=== PATIENT | female | born 1970 | race Caucasian/White ===

== ENCOUNTER 2020-09-13 13:14 | Outpatient (REF) | payer OTHER, SELFPAY ==
--- NOTE | 2020-09-13 13:18 | XR_ITS ---
EXAMINATION: XR FOOT, RIGHT CLINICAL INFORMATION: Follow-up fracture COMPARISON: Previous x-ray 07/28/2020 TECHNIQUE: 3 views right foot of the right foot. FINDINGS: There is a healing nondisplaced fracture of the base of the fifth metatarsal bone. This has increasing bony callus formation and fracture lines appears more indistinct. Alignment appears unchanged. There is an old healed fracture of the distal fifth metatarsal shaft. No other fracture is seen. There is arthritis at the first MTP joint. There is a large plantar calcaneal spur. XR/XR foot RT min 3V IMPRESSION: Healing nondisplaced fracture of the base of the fifth metatarsal bone.
== END 2020-09-13 13:15 | disposition home or self-care (01) ==
LOC: HO.HOSX 13:14
PROVIDERS: Visit Provider Physician Assistant
DX: M79.671 Pain in right foot (principal); S92.354D Nondisplaced fracture of fifth metatarsal bone, right foot, subsequent encounter for fracture with routine healing
CPT/HCPCS: 73630

== ENCOUNTER 2021-02-11 11:19 | Outpatient (REF) | payer OTHER, SELFPAY | END 2021-02-11 11:20 | disposition home or self-care (01) | LOC: HO.LAB 11:19 | PROVIDERS: Visit Provider Internal Medicine | DX: Z20.822 Contact with and (suspected) exposure to COVID-19 (principal) | CPT/HCPCS: 36415; C9803; U0003; U0005 ==

== ENCOUNTER 2021-11-06 07:59 | Outpatient (REF) | payer OTHER, SELFPAY ==
--- NOTE | ~2021-11-06 | XR_ITS ---
EXAMINATION: XR CHEST CLINICAL INFORMATION: Cough COMPARISON: 08/27/2018 TECHNIQUE: 2 views of the chest were obtained. FINDINGS: No significant abnormality is noted involving the heart, lungs, mediastinum, bony thorax or soft tissues. XR/XR chest 2V IMPRESSION: Unremarkable examination.
== END 2021-11-06 08:00 | disposition home or self-care (01) ==
LOC: HO.XRAY 07:59
PROVIDERS: PCP Internal Medicine; Visit Provider Physician Assistant
DX: R05.1 Acute cough (principal)
CPT/HCPCS: 71046

== ENCOUNTER 2022-03-13 11:49 | Outpatient (REF) | payer OTHER, SELFPAY ==
--- NOTE | ~2022-03-13 | MM_ITS ---
EXAMINATION: MM SCREENING DIGITAL BREAST TOMOSYNTHESIS, BILATERAL CLINICAL INFORMATION: Screening. Asymptomatic. The lifetime risk of breast cancer based on the Tyrer-Cuzick Model is 13.2%. COMPARISON: Mammography: August 06, 2017 and studies dating back to January 13, 2012 TECHNIQUE: Digital breast tomosynthesis is performed in both the craniocaudal and mediolateral oblique views along with computer-aided detection (CAD). Synthesized 2D images are generated from the tomosynthesis. FINDINGS: There are scattered areas of fibroglandular density (ACR BI-RADS breast composition Category b). There are no significant masses, abnormal calcifications, or other abnormalities. MM/MM tomosynthesis screening BI IMPRESSION: There are no significant changes from prior study. ASSESSMENT: BI-RADS 1: Negative RECOMMENDATION: Routine annual mammography screening. This patient's information was entered into a reminder system with a target due date for their next mammogram.
== END 2022-03-13 11:50 | disposition home or self-care (01) ==
LOC: HO.MAMMO 11:49
PROVIDERS: PCP Internal Medicine; Visit Provider Physician Assistant
DX: Z12.31 Encounter for screening mammogram for malignant neoplasm of breast (principal)
CPT/HCPCS: 77063; 77067

== ENCOUNTER 2022-05-06 11:30 | Outpatient (REF) | payer OTHER, SELFPAY ==
[2022-05-06 12:17] LABS: Influenza A PCR NEGATIVE (Negative); Influenza B PCR NEGATIVE (Negative); Resp Syncy Virus RNA Qual PCR NEGATIVE (Negative); SARS COV2 PCR INHOUSE NEGATIVE (Negative)
== END 2022-05-06 11:31 | disposition home or self-care (01) ==
LOC: HO.LNP 11:30
PROVIDERS: Visit Provider Family Medicine
DX: Z20.822 Contact with and (suspected) exposure to COVID-19 (principal)
CPT/HCPCS: 0241U

== ENCOUNTER 2022-05-08 08:00 | Outpatient (REF) | payer OTHER, SELFPAY ==
--- NOTE | ~2022-05-08 | CT_ITS ---
EXAMINATION: CT HEAD WITHOUT CONTRAST CLINICAL INFORMATION: Headache. COMPARISON: 03/23/2018 TECHNIQUE: Contiguous axial imaging was performed from the skull base to vertex without intravenous administration of contrast. This CT examination was performed using dose optimization techniques as appropriate, variously including the following: *Automated exposure control *Adjustment of mA and/or kV according to patient size (this includes techniques or standardized protocols for targeted exams where dose is matched to indication/reason for exam; i.e. extremities or head) *Use of iterative reconstruction technique DLP: 691 mGy-cm FINDINGS: Coil pack from previous embolization in the right supraclinoid internal carotid artery distribution is again seen. There is streak artifact of this making it impossible to evaluate the sella for the known pituitary lesion. There is again noted to be an old left thalamic lacunar infarct. No abnormal mass effect or midline shift is seen. Joseph to white matter differentiation is well preserved. No extra-axial fluid collections are identified. The ventricles are normal in size. The osseous structures and soft tissues are normal. The mastoid air cells and visualized portions of the paranasal sinuses are well aerated. CT/CT head/brain wo con IMPRESSION: No acute intracranial pathology. Old left thalamic lacunar infarct. Previous right internal carotid artery coiling with streak artifact obscuring the pituitary sella.
== END 2022-05-08 08:01 | disposition home or self-care (01) ==
LOC: HO.CT 08:00
PROVIDERS: Visit Provider Physician Assistant
DX: R51.9 Headache, unspecified (principal)
CPT/HCPCS: 70450

== ENCOUNTER 2022-05-15 14:45 | Outpatient (REF) | payer OTHER, SELFPAY ==
--- NOTE | ~2022-05-15 | MR_ITS ---
EXAMINATION: MRI BRAIN WITHOUT CONTRAST CLINICAL INFORMATION: Old thalamic stroke on CT. Evaluate further. COMPARISON: Brain MRI 03/25/2018. TECHNIQUE: Multiplanar MR imaging of the brain was performed without contrast. FINDINGS: There is a small nonexpansile focus of T2 FLAIR signal hyperintensity involving the left thalamus that has remained stable when compared to prior imaging from 03/25/2018. There are also a few scattered nonspecific foci of T2 FLAIR signal hyperintensity within the periventricular white matter, some of which are new when compared to prior imaging from 03/25/2018. There is no acute territorial infarct. No pathological magnetic susceptibility artifact. Intracranial vascular flow voids are maintained. There is no intracranial mass effect or midline shift. No abnormal extra-axial collection. Lateral and third ventricles are normal. No hydrocephalus. Midline structures including the cervicomedullary junction are normal. No acute bone marrow signal changes. MR/MR head/brain wo con IMPRESSION: The appearance of a nonspecific lesion involving left thalamus has remained unchanged. There are a few scattered nonspecific signal abnormalities involving the supratentorial white matter, some of which are new when compared to prior imaging from 03/25/2018. Possible diagnostic considerations include infectious, inflammatory, ischemic, or demyelinating diseases. Additional postcontrast images can be obtained to evaluate the presence of active inflammation.
== END 2022-05-15 14:46 | disposition home or self-care (01) ==
LOC: HO.MRI 14:45
PROVIDERS: Visit Provider Physician Assistant
DX: I63.89 Other cerebral infarction (principal)
CPT/HCPCS: 70551

== ENCOUNTER 2022-06-18 14:41 | Outpatient (REF) | payer OTHER, SELFPAY ==
--- NOTE | ~2022-06-18 | MR_ITS ---
EXAMINATION: MR BRAIN WITHOUT AND WITH CONTRAST CLINICAL INFORMATION: Question lesion of the brain. Rule out stroke versus mass or demyelination. COMPARISON: MRI studies dating back to 03/25/2018. TECHNIQUE: Multiplanar, multisequence imaging of the brain was performed before and after the intravenous administration of 7 mL of Gadavist. FINDINGS: No diffusion abnormalities are identified to suggest an acute infarct. The ventricles are normal in size. No mass effect or midline shift is seen. A few scattered subcentimeter foci of T2 hyperintense signal change in the cerebral white matter remains stable. A vague area of mild T2 hyperintensity in the medial left thalamus is nonspecific but otherwise unchanged. No corresponding pathologic enhancement identified. No extra-axial fluid collections are seen. The brainstem and cerebellum are normal. There is no abnormal leptomeningeal enhancement. There is a stable round focus of susceptibility artifact in the cortical nicholson matter of the high right parietal lobe which may reflect a microhemorrhage or calcification. A small proteinaceous Rathke cleft cyst is again visible with T1 hyperintensity, measuring 7.5 x 6 mm in size. The craniovertebral junction, marrow signal, and remaining midline structures are normal. The major intracranial flow voids at the level of the [place] of [place] are preserved. The dural venous sinus flow voids are maintained. The mastoid air cells and paranasal sinuses are well aerated. MR/MR head/brain wo/w con IMPRESSION: No acute intracranial process. Stable nonspecific mild white matter signal changes. Nonenhancing focus of T2 hyperintensity in the medial left thalamus may reflect a small chronic infarct, otherwise indeterminate. 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
== END 2022-06-18 14:42 | disposition home or self-care (01) ==
LOC: HO.MRI 14:41
PROVIDERS: Visit Provider Physician Assistant
DX: G93.9 Disorder of brain, unspecified (principal)
CPT/HCPCS: 70553; A9585

== ENCOUNTER 2022-06-25 11:34 | Outpatient (REF) | payer OTHER, SELFPAY ==
[2022-06-25 13:00] LABS: MANUAL DIFF FLAG NO
[2022-06-25 13:06] LABS: Basophils Percent Auto 0.8 % (0-2); Hematocrit 42.9 % (37.0-47.0); Hemoglobin 14.4 g/dl (12.0-16.0); Imm Gran Abs Auto 0.01 X10*3/uL (0.00-0.03); Imm Gran Pct Auto 0.3 % (0.0-0.4); Lymphocytes Absolute Auto 0.8 X10*3/uL (1.2-4.9); Lymphocytes Percent Auto 19.7 % (20-40); Mean Corpuscular HGB Conc 33.6 g/dl (31.0-35.0); Mean Corpuscular Hemoglobin 32.4 pg (27.0-33.0); Mean Corpuscular Volume 96.4 fL (80.0-98.0); Mean Platelet Volume 8.6 fL (9.4-12.3); Monocytes Absolute Auto 0.3 X10*3/uL (0.1-1.2); Monocytes Percent Auto 6.8 % (2-11); Neutrophils Absolute Auto 2.8 x10*3/uL (2.0-8.3); Neutrophils Percent Auto 71.4 % (45-73); Platelet Count 290 X10*3/uL (160-400); Red Blood Count 4.45 X10*6/uL (4.20-5.50); Red Cell Distribution Width 13.2 % (11.0-16.0)
[2022-06-25 13:21] LABS: Alanine Aminotransferase 15 U/L (0-31); Albumin Level 4.6 g/dL (3.5-5.0); Alkaline Phosphatase 61 U/L (39-117); Anion Gap 13 (12-20); Aspartate Amino Transferase 16 U/L (5-31); Bilirubin Total 0.9 mg/dL (0.0-1.0); Blood Urea Nitrogen 16 mg/dL (9-16); C Reactive Protein 0.08 mg/dL (< or = 0.50); Calcium 9.3 mg/dL (8.4-10.2); Carbon Dioxide 25 mmol/L (22-29); Chloride 107 mmol/L (96-108); Estimated Glomerular Filt Rate 54; Glucose Random 104 mg/dL (60-115); Iron 161 mcg/dL (30-160); Magnesium 2.2 mg/dL (1.6-2.6); Percent Iron Saturation 50 % (15-50); Potassium 4.4 mmol/L (3.3-5.1); Sodium 141 mmol/L (135-145); Total Iron Binding Capacity 320 mcg/dL (228-428); Total Protein 7.5 g/dL (6.5-8.0); Unsaturated Iron Binding 159 ug/dL
[2022-06-25 13:36] LABS: Ferritin 64 ng/mL (10-250); Free T4 (Free Thyroxine) 0.99 ng/dL (0.71-1.85); Thyroid Stimulating Hormone 0.45 uIU/mL (0.32-4.0); Vitamin D 25-OH Total 71.9 ng/mL (>30)
[2022-06-25 13:50] LABS: Erythrocyte Sedimentation Rate 1 MM/HR (0-20)
[2022-06-25 13:56] LABS: Vitamin B12 382 pg/mL (200-900)
[2022-06-26 13:26] LABS: Lyme Abs Screen <0.90 index
== END 2022-06-25 11:35 | disposition home or self-care (01) ==
LOC: HO.MANLDS 11:34
PROVIDERS: Visit Provider Physician Assistant
DX: R42 Dizziness and giddiness (principal); R53.1 Weakness; R53.83 Other fatigue
CPT/HCPCS: 36415; 80053; 82306; 82607; 82728; 83540; 83735; 84439; 84443; 85025; 85652; 86140; 86617; 86618

== ENCOUNTER 2022-07-15 09:15 | Outpatient (REF) | payer OTHER, SELFPAY ==
--- NOTE | ~2022-07-15 | XR_ITS ---
EXAMINATION: XR CERVICAL SPINE CLINICAL INFORMATION: Pain COMPARISON: None TECHNIQUE: 3 views of the cervical spine were obtained. FINDINGS: Bone alignment is normal. No fracture or dislocation is seen. There is degenerative spondylosis and degenerative disc disease at C4-C5 and C5-C6. Prevertebral soft tissues are normal. XR/XR cervical spine 2V IMPRESSION: Mild degenerative changes.
--- NOTE | ~2022-07-15 | XR_ITS ---
EXAMINATION: XR LUMBOSACRAL SPINE CLINICAL INFORMATION: Pain COMPARISON: None TECHNIQUE: Three views of the lumbosacral spine. FINDINGS: There is mild curvature of the lower lumbar spine to the left. Bone alignment is otherwise normal. No fracture or dislocation is seen. Disc spaces are normal. There is lower lumbar spine facet arthritis. There is an IUD in the pelvis. XR/XR lumbar spine 2-3V IMPRESSION: Curvature of the lower lumbar spine to the left and facet arthritis.
== END 2022-07-15 09:16 | disposition home or self-care (01) ==
LOC: HO.XRAY 09:15
PROVIDERS: PCP Internal Medicine; Visit Provider Psychiatry & Neurology Neurology
DX: M54.2 Cervicalgia (principal); M54.9 Dorsalgia, unspecified; R20.0 Anesthesia of skin; R20.2 Paresthesia of skin; I63.81 Other cerebral infarction due to occlusion or stenosis of small artery
CPT/HCPCS: 72040; 72100

== ENCOUNTER 2022-07-31 08:43 | Outpatient (REF) | payer OTHER, SELFPAY ==
--- NOTE | 2022-07-31 | EMG_ITS ---
Left median and ulnar motor and sensory studies were performed. Left radial sensory study was performed and EMG examination was done. IMPRESSION: [id number] left median neuropathy across carpal tunnel. There was no evidence of cervical radiculopathy. MD ALFREDO Pichardo/TRISHA / [id number]
== END 2022-07-31 08:44 | disposition home or self-care (01) ==
LOC: HO.NEURO 08:43
PROVIDERS: Visit Provider Psychiatry & Neurology Neurology
DX: M54.2 Cervicalgia (principal); M54.9 Dorsalgia, unspecified; R20.0 Anesthesia of skin; R20.2 Paresthesia of skin; Z86.73 Personal history of transient ischemic attack (TIA), and cerebral infarction without residual deficits
CPT/HCPCS: 95886; 95909

== ENCOUNTER → 2022-08-06 10:03 | Outpatient (REF) | payer OTHER, SELFPAY | LOC: HO.SL 10:03 | PROVIDERS: PCP Internal Medicine; Visit Provider Psychiatry & Neurology Neurology | DX: R06.83 Snoring (principal); R20.0 Anesthesia of skin; R20.2 Paresthesia of skin | CPT/HCPCS: 95806 ==

== ENCOUNTER 2022-12-26 14:06 | Outpatient (REF) | payer OTHER, SELFPAY ==
--- NOTE | ~2022-12-26 | US_ITS ---
EXAMINATION: US soft tissue/pelvic, LIMITED/FOLLOW UP CLINICAL INFORMATION: Right-sided inguinal pain COMPARISON: None TECHNIQUE: Grayscale and Doppler evaluation of the right inguinal region FINDINGS: No sonographic findings of the right inguinal hernia with and without Valsalva maneuvers. Multiple right inguinal lymph nodes are noted, the largest measuring up to 1.5 cm, with normal morphology and benign-appearing fatty doris. US/US pelvic limited IMPRESSION: No sonographic findings of the right inguinal hernia with and without Valsalva maneuvers. Multiple right inguinal lymph nodes are noted, the largest measuring up to 1.5 cm, with normal morphology and benign-appearing fatty doris.
== END 2022-12-26 14:07 | disposition home or self-care (01) ==
LOC: HO.US 14:06
PROVIDERS: Visit Provider Physician Assistant
DX: R10.31 Right lower quadrant pain (principal)
CPT/HCPCS: 76857

== ENCOUNTER 2023-02-03 10:08 | Outpatient (REF) | payer OTHER, SELFPAY ==
[2023-02-03 13:43] LABS: Influenza A PCR NEGATIVE (Negative); Influenza B PCR NEGATIVE (Negative); Resp Syncy Virus RNA Qual PCR NEGATIVE (Negative); SARS COV2 PCR INHOUSE NEGATIVE (Negative)
== END 2023-02-03 10:09 | disposition home or self-care (01) ==
LOC: HO.LAB 10:08
PROVIDERS: Visit Provider Nurse Practitioner Family
DX: Z20.822 Contact with and (suspected) exposure to COVID-19 (principal); R09.89 Other specified symptoms and signs involving the circulatory and respiratory systems
CPT/HCPCS: 0241U

== ENCOUNTER 2023-03-31 11:48 | Outpatient (REF) | payer OTHER, SELFPAY ==
--- NOTE | ~2023-03-31 | MM_ITS ---
EXAMINATION: MM SCREENING DIGITAL BREAST TOMOSYNTHESIS, BILATERAL CLINICAL INFORMATION: Screening. Asymptomatic. The lifetime risk of breast cancer based on the Tyrer-Cuzick Model is 15%. COMPARISON: Mammography: 03/13/2022, 08/06/2017, 05/26/2016 TECHNIQUE: Digital breast tomosynthesis is performed in both the craniocaudal and mediolateral oblique views along with computer-aided detection (CAD). Synthesized 2D images are generated from the tomosynthesis. FINDINGS: There are scattered areas of fibroglandular density (ACR BI-RADS breast composition Category b). There are no significant masses, abnormal calcifications, or other abnormalities. Parenchymal pattern is similar to prior studies. There is no developing density or architectural abnormality. The axilla and skin contours are unremarkable. No significant changes. MM/MM tomosynthesis screening BI IMPRESSION: No mammographic evidence of malignancy. ASSESSMENT: BI-RADS 1: Negative RECOMMENDATION: Routine annual mammography screening. This patient's information was entered into a reminder system with a target due date for their next mammogram.
== END 2023-03-31 11:49 | disposition home or self-care (01) ==
LOC: HO.MAMMO 11:48
PROVIDERS: PCP Internal Medicine; Visit Provider Physician Assistant
DX: Z12.31 Encounter for screening mammogram for malignant neoplasm of breast (principal)
CPT/HCPCS: 77063; 77067

== ENCOUNTER → 2023-04-30 08:45 | Outpatient (REF) | payer OTHER, SELFPAY ==
--- NOTE | 2023-04-30 | CA_ITS ---
Acquisition Time: 2023-04-30 09:04:32 Total Exercise Time: 00:08:19 Test Indications: CP Medications: SEE H Protocol: ANA LUISA Max HR: 151 BPM 89% of Pred: 168 BPM Max BP: 232/100 mmHG Max Work Load: 10.1 METS Exercise stress test exercise 8 min 19 sec achieivng 89% MPHR, without anginal symptoms, without arrhythmias, with resting hypertension, with exaggerated hypertensive response, with borderline EKG changes. Starting BP 150/104, Max BP 230/100. Test reviewed with Dr. Orr. Referred By: Caroline Mcconnell Overread By: JON MARLEY
== END ==
LOC: HO.CARD 08:45
PROVIDERS: PCP Internal Medicine; Visit Provider Physician Assistant
DX: R07.89 Other chest pain (principal)
CPT/HCPCS: 93017

== ENCOUNTER → 2023-05-07 09:48 | Outpatient (REF) | payer OTHER, SELFPAY ==
--- NOTE | 2023-05-07 09:51 | CA_ITS ---
Transthoracic Echocardiogram Patient (Last, First, Middle): Bertha Sierra J Gender: Female Date of : 1970 Age: 52 Procedure Date: 05/07/2023 Procedure Type: Transthoracic Echocardiogram Location: OP Height: 165.1 cm Weight: 74.84 kg BSA: 1.82 m2 Heart Rate: bpm BP: 210 / 124 mmHg Stage Technician: AHMET Referring MD: Caroline GODWIN Symptoms: Atypical chest pain; R07.89 Other chest pain Study Quality: Adequate ECG Rhythm: Sinus Conclusions: - The left ventricular systolic function is normal. The calculated ejection fraction is 57% by biplane method. - The basal inferior segment is hypokinetic. - The left atrium is moderately dilated. - No obvious valvular pathology seen on this study. Findings Left Ventricle Normal left ventricular cavity size. There is mildly increased left ventricular wall thickness. The left ventricular systolic function is normal. The calculated ejection fraction is 57% by biplane method. Evidence suggests grade I (mild) diastolic dysfunction. LV peak GLS -15.2%. Wall Motion Rest Echo Findings The basal inferior segment is hypokinetic. Right Ventricle Normal right ventricular cavity size and systolic function. Atria The left atrium is moderately dilated. The right atrium is normal in size. Aortic Valve There is a normal trileaflet aortic valve. There is no aortic valve stenosis. There is no aortic valve regurgitation. Mitral Valve There is mild anterior mitral leaflet thickening. There is mild mitral annular calcification. There is trace mitral valve regurgitation. There is no mitral valve stenosis. Pulmonic Valve The pulmonic valve was not well visualized. Tricuspid Valve There is no tricuspid valve regurgitation. Tricuspid regurgitation envelope is inadequate for calculation of right ventricular systolic pressure. Great Vessels The asc aorta and aortic arch are normal in size. Venous The inferior vena cava is normal in size and collapses greater than 50% with inspiration. Pericardium/Pleural There is no evidence of pericardial effusion. Prior Study Comparison Changes noted compared to prior study dated: 03/24/2018. Increase in left atrial size. See comment on wall motion. Recommendations, Care & Conclusions No obvious valvular pathology seen on this study. Measurements 2D Linear Measurements IVSd: 1.13 0.6-0.9/0.6-1.0 cm LVIDd: 4.52 3.9-5.3/4.2-5.9 cm LVIDd Index: 2.48 2.4-3.2/2.2-3.1 cm/m2 LVIDs: 2.90 2.0-3.6 cm LVPWd: 1.15 0.7-1.1 cm LA Diam: 3.30 2.7-3.8/3.0-4.0 cm LAIDs Index: 1.81 1.5-2.3 cm/m2 LV Mass: 230.97 67-162/88-224 g LV Mass Index: 126.91 43-95/49-115 g/m2 LVOT Diam: 2.10 3.0+(-)1.3 cm 2D Systolic Function EF 4C: 54.40 >55% EF 2C: 57.20 >55% EF BiP: 56.80 >55% Mitral Valve MV Pk E: 0.90 MV PK A: 0.87 MV Decel Time: 244.00 E/A: 1.00 E'Lateral: 6.20 E'Medial: 6.09 E/E' Med: 14.80 E/E' Lat: 14.50 PHT: 72.00 MVA PHT: 3.06 Decel [place]: 3.69 Aortic Valve AoV Pk Matthew: 1.36 AoV Mn Matthew: 1.04 AoV VTI: 0.30 AoV Pk Grad: 7.00 Aov Mn Grad: 5.00 KARRI Cont.VTI: 2.25 LVOT LVOT Pk Matthew: 0.96 LVOT Mn Matthew: 0.65 LVOT VTI: 0.20 LVOT Pk Grad: 4.00 LVOT Mn Grad: 2.00 LVOT Diam: 2.10 LVOT Area: 3.46 Diastolic Function MV Pk E: 0.90 MV Pk A: 0.87 E/A: 1.00 E'Medial: 6.09 E/E' Med: 14.80 E' Laterial: 6.20 E/E' Lat: 14.50 Right Ventricle TAPSE (mm): 23.50 TVS' Matthew: 14.60 Tricuspid Valve RA Press: 3.00 Great Vessels Aorta Sinus of Valsalva: 2.70 2.0-3.[address] [place]: 2.42 1.7-3.4 cm Ao Asc: 3.10 2.1-3.4 cm Ao Arch: 2.90 Updated in Other Vendor System with Status of Final Main Mc MD electronically signed on 05/07/2023 11:54:15 AM with status of Final
== END ==
LOC: HO.CARD 09:48
PROVIDERS: Visit Provider Physician Assistant
DX: R07.89 Other chest pain (principal)
CPT/HCPCS: 93306; 93356

== ENCOUNTER 2023-05-07 10:51 | Observation (INO) | payer OTHER, SELFPAY ==
[2023-05-07] VITALS (10 sets, daily range): BP systolic 175–244; BP diastolic 74–110; PULSE 57–78; RESP 15–19; TEMP 36.6–37.1; O2SAT 97–100; BMI 29.9
--- NOTE | ~2023-05-07 | CT_ITS ---
EXAMINATION: CT HEAD WITHOUT CONTRAST CLINICAL INFORMATION: Hypertensive COMPARISON: None available. TECHNIQUE: Contiguous axial imaging was performed from the skull base to vertex without intravenous administration of contrast. This CT examination was performed using dose optimization techniques as appropriate, variously including the following: *Automated exposure control *Adjustment of mA and/or kV according to patient size (this includes techniques or standardized protocols for targeted exams where dose is matched to indication/reason for exam; i.e. extremities or head) *Use of iterative reconstruction technique DLP: 562 mGy-cm FINDINGS: No intra or extra-axial fluid collection or hemorrhage, mass or mass effect. Sulci and ventricles normal. Streak artifact from a clip is seen in the region of the right aspect of the sella turcica. Calvarium is intact. CT/CT head/brain wo IV con IMPRESSION: No acute intracranial pathology.
--- NOTE | 2023-05-07 11:13 | ECG_ITS ---
Test Reason : HYPERTENSION Blood Pressure : / mmHG Vent. Rate : 068 BPM Atrial Rate : 068 BPM P-R Int : 166 ms QRS Dur : 088 ms QT Int : 402 ms P-R-T Axes : 059 041 059 degrees QTc Int : 427 ms Normal sinus rhythm Normal ECG When compared with ECG of 27-AUG-2018 11:13, Vent. rate has decreased BY 44 BPM Referred By: Migue Guerrero Electronically Signed By:JACINTO GONZALES
--- NOTE | 2023-05-07 11:14 | ED_ITS ---
HPI - General Adult General Chief complaint: General Medical Stated complaint: Uncontrolled Blood Pressure Time Seen by Provider: 05/07/23 11:06 Source: patient Mode of arrival: ambulatory Limitations: no limitations History of Present Illness HPI narrative: 52-year-old female with past medical history of uncontrolled hypertension presents to the ED for elevated blood pressure. Patient was [facility] getting stat echo and found to be hypertensive. Patient presently asymptomatic. Patient denies any chest pain, shortness of breath, headache, dizziness, eye pain, blurry vision, slurred speech, facial droop, paralysis of extremities, or loss of vision. Patient denies any head trauma. Patient states has had headache before in the past with elevated blood pressure. Patient took her labetalol 125 this morning. Patient denies any drug use. Related Data Home Medications Medication Instructions Recorded Confirmed [id number]-[id number]-[id number] 1 cap PO Q4H PRN HEADACHES 09/13/20 05/07/23 50 mg-300 mg-40 mg capsule (Fioricet) labetalol 200 mg tablet 200 mg PO BID 09/13/20 05/07/23 aspirin 81 mg tablet,delayed 81 mg PO BEDTIME 07/15/22 05/07/23 release (Adult Low Dose Aspirin) lisinopril 40 mg tablet 40 mg PO DAILY 07/15/22 05/07/23 lorazepam 0.5 mg tablet 0.5 mg PO BID PRN Anxiety 07/15/22 05/07/23 tramadol 50 mg tablet 50 mg PO BID PRN Pain 05/07/23 05/07/23 Previous Rx's Medication Instructions Recorded topiramate 25 mg tablet 25 mg PO BID 30 days #60 tabs 08/26/22 Allergies Allergy/AdvReac Type Severity Reaction Status Date / Time No Known Allergies Allergy Verified 02/03/23 09:58 [No Known Allergies*] Review of Systems Review of Systems: hypertension. 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 Physical Exam ED Vital Signs: Vital Signs - 24 hr 05/07/23 10:54 05/07/23 12:07 05/07/23 12:42 Temperature 98.8 F Pulse Rate 78 75 Respiratory Rate 16 18 Blood Pressure 244/107 H 210/105 H 210/105 H Pulse Oximetry 100 97 Oxygen Delivery Method Room Air Room Air 05/07/23 13:07 05/07/23 14:08 05/07/23 15:55 Temperature 98.7 F 97.8 F Pulse Rate 74 64 73 Respiratory Rate 19 16 18 Blood Pressure 190/88 H 189/87 H 179/92 H Pulse Oximetry 99 100 98 Oxygen Delivery Method Room Air Room Air Room Air 05/07/23 16:20 Temperature 98.7 F Pulse Rate 73 Respiratory Rate 15 Blood Pressure 188/109 H Pulse Oximetry 98 Oxygen Delivery Method Room Air BMI result Body Mass Index 30.0 Const General: cooperative, healthy appearing, comfortable, no acute distress, well developed, alert, awake and Physically active Orientation/consciousness: oriented to person, oriented to place, oriented to time and patient oriented x3 HENMT Head: Yes normal to inspection, Yes No palpable skull fracture present, Yes normocephalic, Yes atraumatic and No abrasion Eyes General: appearance normal, both eyes and all related structures Neck Neck: Yes normal visual inspection, Yes full ROM, Yes no lymphadenopathy, Yes no meningeal signs, Yes trachea midline, Yes supple, No anterior neck swelling and No tender Chest Chest palpation & inspection: normal inspection of the chest and normal palpation of entire chest wall Resp Effort & Inspection: normal respiratory effort and able to speak in complete sentences Auscultation: clear to auscultation bilaterally Cardio Jugular venous distension: no JVD Heart sounds: S1 normal heart sound present and S2 normal heart sound present GI Inspection: Yes normal to inspection and No abdominal wall ecchymosis Palpation (GI): Soft to palpation, not firm, nontender, no guarding and not rigid General: No CVA tenderness and Yes no CVA tenderness Back/Spine/Pelvis Back: no CVA tenderness, No CVA tenderness and No back tenderness Skin General skin exam: no rashes or lesions noted and elasticity normal Neuro Other: Negative slurred speech. Negative facial droop. Negative pronator drift. Negative nystagmus. All extremities equal strength 5+. [id number] and rapid head movement intact. Negative Romberg. General: oriented to person, oriented to place, oriented to time, patient oriented x3, gait normal, tone normal, moves all extremities, Normal light touch and pain sensation, no meningeal signs, no focal motor deficits, CN's II-XI intact bilaterally and normal sensation to monofilament Extrem General: Yes normal to inspection and Yes full ROM Psych Appearance: grossly normal, well kempt and not disheveled Course Course Course Narrative: Patient asymptomatic elevated blood pressure will do labs, EKG, troponin, check kidney function, and head CT scan. Clonidine ordered. Reevaluation(s) Reevaluation #1: Patient EKG troponins were negative. Head CT scan normal. Patient to be admitted for hypertensive crisis. Blood pressure 180/109 after receiving labetalol and clonidine. Case accepted by Dr. Ibanez of hospitalist. Time: 16:55 Medications Administered Discontinued Medications Generic Name Dose Route Start Last Admin Trade Name Freq PRN Reason Stop Dose Admin Clonidine HCl 0.2 mg 05/07/23 11:13 05/07/23 11:18 Clonidine Hcl 0.2 Mg Tablet PO 05/07/23 11:14 0.2 mg ONCE ONE Administration Protocol Labetalol HCl 10 mg 05/07/23 12:09 05/07/23 12:16 Labetalol Hcl 100 Mg/20 Ml Vial IVPUSH 05/07/23 12:10 10 mg ONCE ONE Administration Medical Decision Making Medical Decision Making MDM Narrative: 52-year-old female asymptomatic with elevated high blood pressure high systolic 244. Patient states her blood pressure has been difficult to be controlled by her PCP for many years. Patient sent from cardiology for elevated blood pressure while having and echo done. Patient denies any chest pain, shortness of breath, headache, any neuro symptoms. Medical workup was normal. Patient to be admitted for hypertensive crisis Differential Diagnosis Differential Diagnoses: The differential diagnosis associated with the presentation includes (Stroke, myocardial infarction, kidney injury, hypertensive emergency, hypertensive urgency,) Admission/Observation Consideration of admission/observation: Escalation of care including admission/observation considered Consult Healthcare Provider Management of the patient was discussed with: [place] (hospitalist) Lab Data MDM Lab Attestation statement: I reviewed the patient's lab results. 05/07/23 11:15 05/07/23 11:15 Labs: Lab Results 05/07/23 05/07/23 05/07/23 Range/Units 11:15 11:15 11:15 WBC 5.2 (4.8-10.8) X10*3/uL RBC 4.33 (4.20-5.50) X10*6/uL Hgb 13.8 (12.0-16.0) g/dl Hct 41.4 (37.0-47.0) % MCV 95.6 (80.0-98.0) fL MCH 31.9 (27.0-33.0) pg MCHC 33.3 (31.0-35.0) g/dl RDW 13.4 (11.0-16.0) % Plt Count 276 (160-400) X10*3/uL MPV 8.4 L (9.4-12.3) fL Immature Gran % (Auto) 0.4 (0.0-0.4) % Neut % (Auto) 71.2 (45-73) % Lymph % (Auto) 19.4 L (20-40) % [place] % (Auto) 8.0 (2-11) % Eos % (Auto) 0.8 (0-4) % Baso % (Auto) 0.2 (0-2) % Lymph # (Auto) 1.0 L (1.2-4.9) X10*3/uL [place] # (Auto) 0.4 (0.1-1.2) X10*3/uL Eos # (Auto) 0.0 (0.0-0.4) X10*3/uL Baso # (Auto) 0.0 (0.0-0.2) X10*3/uL Abs Immat Gran (auto) 0.02 (0.00-0.03) X10*3/uL Absolute Neuts (auto) 3.7 (2.0-8.3) x10*3/uL Absolute Nucleated RBC 0.000 (0.0-0.012) X10*3/uL Nucleated RBC % (auto) 0.0 (0.0-0.2) /100WBC PT 10.2 (10.0-13.1) SEC INR 0.9 (0.9-1.1) APTT 35.5 (26.0-36.4) SEC Sodium 140 (135-145) mmol/L Potassium 4.0 (3.3-5.1) mmol/L Chloride 108 (96-108) mmol/L Carbon Dioxide 26 (22-29) mmol/L Anion Gap 10 L (12-20) BUN 15 (9-16) mg/dL Creatinine 0.95 (0.5-1.4) mg/dL Estim Creat Clear Calc 73.1 Estimated GFR > 60 Random Glucose 97 (60-115) mg/dL Calcium 8.8 (8.4-10.2) mg/dL Total Bilirubin 1.1 H (0.0-1.0) mg/dL AST 16 (5-31) U/L ALT 16 (0-31) U/L Alkaline Phosphatase 70 (39-117) U/L Troponin I High Sens (<3.5-17.0) ng/L Total Protein 7.6 (6.5-8.0) g/dL Albumin 4.3 (3.5-5.0) g/dL 05/07/23 05/07/23 Range/Units 11:15 14:12 WBC (4.8-10.8) X10*3/uL RBC (4.20-5.50) X10*6/uL Hgb (12.0-16.0) g/dl Hct (37.0-47.0) % MCV (80.0-98.0) fL MCH (27.0-33.0) pg MCHC (31.0-35.0) g/dl RDW (11.0-16.0) % Plt Count (160-400) X10*3/uL MPV (9.4-12.3) fL Immature Gran % (Auto) (0.0-0.4) % Neut % (Auto) (45-73) % Lymph % (Auto) (20-40) % [place] % (Auto) (2-11) % Eos % (Auto) (0-4) % Baso % (Auto) (0-2) % Lymph # (Auto) (1.2-4.9) X10*3/uL [place] # (Auto) (0.1-1.2) X10*3/uL Eos # (Auto) (0.0-0.4) X10*3/uL Baso # (Auto) (0.0-0.2) X10*3/uL Abs Immat Gran (auto) (0.00-0.03) X10*3/uL Absolute Neuts (auto) (2.0-8.3) x10*3/uL Absolute Nucleated RBC (0.0-0.012) X10*3/uL Nucleated RBC % (auto) (0.0-0.2) /100WBC PT (10.0-13.1) SEC INR (0.9-1.1) APTT (26.0-36.4) SEC Sodium (135-145) mmol/L Potassium (3.3-5.1) mmol/L Chloride (96-108) mmol/L Carbon Dioxide (22-29) mmol/L Anion Gap (12-20) BUN (9-16) mg/dL Creatinine (0.5-1.4) mg/dL Estim Creat Clear Calc Estimated GFR Random Glucose (60-115) mg/dL Calcium (8.4-10.2) mg/dL Total Bilirubin (0.0-1.0) mg/dL AST (5-31) U/L ALT (0-31) U/L Alkaline Phosphatase (39-117) U/L Troponin I High Sens 6.2 6.9 (<3.5-17.0) ng/L Total Protein (6.5-8.0) g/dL Albumin (3.5-5.0) g/dL Independent Interpretation I performed an independent interpretation of an: EKG (Normal sinus rhythm. Ventricular rate 68. Peer interval 166. QRS 88. QTC 427. Negative STEMI) and CT Scan Radiology Impression Discussion of test interpretation with radiology: I have reviewed the radiologist's reading. Discharge Plan Discharge Patient Disposition: Admitted As Inpatient
[2023-05-07 11:18] LABS: MANUAL DIFF FLAG NO
[2023-05-07] MEDS: cloNIDine HCL 0.2 MG TABLET PO (11:18)
[2023-05-07 11:22] LABS: Basophils Percent Auto 0.2 % (0-2); Eosinophils Percent Auto 0.8 % (0-4); Hematocrit 41.4 % (37.0-47.0); Hemoglobin 13.8 g/dl (12.0-16.0); Imm Gran Abs Auto 0.02 X10*3/uL (0.00-0.03); Imm Gran Pct Auto 0.4 % (0.0-0.4); Lymphocytes Percent Auto 19.4 % (20-40); Mean Corpuscular HGB Conc 33.3 g/dl (31.0-35.0); Mean Corpuscular Hemoglobin 31.9 pg (27.0-33.0); Mean Corpuscular Volume 95.6 fL (80.0-98.0); Mean Platelet Volume 8.4 fL (9.4-12.3); Monocytes Absolute Auto 0.4 X10*3/uL (0.1-1.2); Neutrophils Absolute Auto 3.7 x10*3/uL (2.0-8.3); Neutrophils Percent Auto 71.2 % (45-73); Platelet Count 276 X10*3/uL (160-400); Red Blood Count 4.33 X10*6/uL (4.20-5.50); Red Cell Distribution Width 13.4 % (11.0-16.0); White Blood Count 5.2 X10*3/uL (4.8-10.8)
[2023-05-07 11:27] LABS: INTERNATIONAL NORM RATIO 0.9 (0.9-1.1); Prothrombin Time 10.2 SEC (10.0-13.1)
[2023-05-07 11:30] LABS: Partial Thromboplastin Time 35.5 SEC (26.0-36.4)
[2023-05-07 11:37] LABS: Alanine Aminotransferase 16 U/L (0-31); Albumin Level 4.3 g/dL (3.5-5.0); Alkaline Phosphatase 70 U/L (39-117); Anion Gap 10 (12-20); Aspartate Amino Transferase 16 U/L (5-31); Bilirubin Total 1.1 mg/dL (0.0-1.0); Blood Urea Nitrogen 15 mg/dL (9-16); Calcium 8.8 mg/dL (8.4-10.2); Carbon Dioxide 26 mmol/L (22-29); Chloride 108 mmol/L (96-108); Creatinine Clr Calc Pharmacy 73.1; Estimated Glomerular Filt Rate > 60; Glucose Random 97 mg/dL (60-115); Sodium 140 mmol/L (135-145); Total Protein 7.6 g/dL (6.5-8.0)
[2023-05-07 11:42] LABS: Troponin-I High Sensitivity 6.2 ng/L (<3.5-17.0)
[2023-05-07] MEDS: Labetalol HCL 100 MG/20 ML VIAL 10 MG IVPUSH (12:16)
--- NOTE | 2023-05-07 12:30 | PC.NURSE ---
pt continues to deny any pain or symptoms, remains hypertensive. medicated per the mar.
--- NOTE | 2023-05-07 14:43 | PC.NURSE ---
awaiting repeat troponin, resting comfortably in bed. yolande palacio and anton provided call leblanc within reach
[2023-05-07 14:50] LABS: Troponin-I High Sensitivity 6.9 ng/L (<3.5-17.0)
--- NOTE | 2023-05-07 16:18 | PHA.MEDREC ---
Pharmacy Consult ? Medication Reconciliation Pharmacy has completed the medication reconciliation. Patient claims adherence but not supported by refill history. TATO Clark made aware Maxim
--- NOTE | 2023-05-07 17:07 | P.HPHOSP_ITS ---
History of Present Illness Date of Service: 05/07/23 Attending physician on admission: [facility] Chief Complaint: elevated blood pressure This is a 52 year old female with history of HTN. She was getting outpatient echo and noted to have high blood pressure and thus send to ED for evaluation. Initial bp 244/107. She denies any shortness of breath, chest pain, headache or vision changes. she received a dose of po clonidine, and IV labetalol and BP improved to 180s systolic. she has history of uncontrolled blood pressure and has reportedly had outpatient work up. claim history indicates she has not filled her lisinopril since last summer and labetolol since january although she says she takes it daily. the decision was made to admit her overnight for observation. Review of Systems Review of Systems: Yes all other systems are reviewed and are negative Constitutional: Constitutional: Denies chills and Denies fever(s) ENT: Denies dizziness Cardiovascular: Cardiovascular: Denies chest pain, Denies palpitations and Denies dyspnea Respiratory: Respiratory: Denies cough and Denies dyspnea Gastrointestinal: Gastrointestinal: Denies abdominal pain, Denies nausea and Denies vomiting Neurologic: Denies dizziness Endocrine: Endocrine: Denies palpitations [facility] Medical History Cerebral aneurysm Essential hypertension GERD (gastroesophageal reflux disease) Migraines, neuralgic Family History Father Lung cancer Mother HTN (hypertension) Diabetes Family/Other HTN (hypertension) Social History Alcohol intake: never Patient Tobacco Use Status: Never used Tobacco Advance Directives: No Advance Directives Information Provided: Yes 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 Meds Allergies Allergy/AdvReac Type Severity Reaction Status Date / Time No Known Allergies Allergy Verified 02/03/23 09:58 [No Known Allergies*] Active Medications: Current Medications Acetaminophen (Acetaminophen 325 Mg Tablet) 650 mg PO Q6H PRN PRN Reason: Pain, Mild (Pain Scale 1-3) Acetaminophen/Butalbital/Caffeine (Butalb/Acetamin/Caff 50/325/40 Tablet) 1 tab PO Q4H PRN PRN Reason: HEADACHES Aspirin (Aspirin Enteric Coated 81 Mg Tablet.) 81 mg PO BEDTIME MAGED Docusate Sodium (Docusate Sodium 100 Mg Capsule) 100 mg PO DAILY PRN PRN Reason: Constipation Labetalol HCl (Labetalol Hcl 200 Mg Tablet) 200 mg PO BID [facility]; Protocol Lisinopril (Lisinopril 20 Mg Tablet) 20 mg PO DAILY [facility]; Protocol Lorazepam (Lorazepam 0.5 Mg Tablet) 0.5 mg PO BID PRN PRN Reason: Anxiety Pharmacy Consult (Consult Rx Perform Med Rec) 1 each MISCELLANE ONCE PRN PRN Reason: Consult order Sodium Chloride (0.9 % Sodium Chloride Flush 3 Ml Syringe) 3 ml IVFLUSH QSHIFT [facility] Topiramate (Topiramate 25 Mg Tablet) 25 mg PO BID [facility] Home Medications Medication Instructions Recorded Confirmed Last Taken Type pmwmyteelo-ntjivvaibuhki-cwvxqqhl 1 cap PO Q4H PRN HEADACHES 09/13/20 05/07/23 Unknown History 50 mg-300 mg-40 mg capsule (Fioricet) labetalol 200 mg tablet 200 mg PO BID 09/13/20 05/07/23 Unknown History aspirin 81 mg tablet,delayed 81 mg PO BEDTIME 07/15/22 05/07/23 Unknown History release (Adult Low Dose Aspirin) lisinopril 40 mg tablet 40 mg PO DAILY 07/15/22 05/07/23 Unknown History lorazepam 0.5 mg tablet 0.5 mg PO BID PRN Anxiety 07/15/22 05/07/23 Unknown History tramadol 50 mg tablet 50 mg PO BID PRN Pain 05/07/23 05/07/23 Unknown History Physical Exam Vital Signs and Narrative: Vital Signs: Last Vital Signs Temp 98.7 F 05/07/23 16:20 Pulse 73 05/07/23 16:20 Resp 15 05/07/23 16:20 BP 188/109 H 05/07/23 16:20 Pulse Ox 98 05/07/23 16:20 O2 Del Method Room Air 05/07/23 16:20 BMI result Body Mass Index 30.0 Const: General: cooperative, comfortable, no acute distress, alert and awake Nutritional Appearance: average body habitus Orientation/consciousness: patient oriented x3 Resp: Effort & Inspection: normal respiratory effort, able to speak in comple te sentences, no respiratory distress and no use of accessory muscles Auscultation: clear to auscultation bilaterally Cardio: Rate: regular rate Heart sounds: S1 normal heart sound present and S2 normal heart sound present GI: Inspection: No distended Palpation (GI): Soft to palpation and nontender Neuro: General: patient oriented x3, moves all extremities and CN's II-XI intact bilaterally Extrem: General: Yes no pedal edema Results Labs 05/07/23 11:15 05/07/23 11:15 Labs: Laboratory Results - last 24 hr 05/07/23 05/07/23 05/07/23 11:15 11:15 11:15 MCV 95.6 MCH 31.9 MCHC 33.3 RDW 13.4 Plt Count 276 MPV 8.4 L Immature Gran % (Auto) 0.4 Neut % (Auto) 71.2 Lymph % (Auto) 19.4 L [place] % (Auto) 8.0 Eos % (Auto) 0.8 Baso % (Auto) 0.2 Lymph # (Auto) 1.0 L [place] # (Auto) 0.4 Eos # (Auto) 0.0 Baso # (Auto) 0.0 Abs Immat Gran (auto) 0.02 Absolute Neuts (auto) 3.7 Absolute Nucleated RBC 0.000 Nucleated RBC % (auto) 0.0 PT 10.2 INR 0.9 APTT 35.5 Anion Gap 10 L Estim Creat Clear Calc 73.1 Estimated GFR > 60 Random Glucose 97 Calcium 8.8 Total Bilirubin 1.1 H AST 16 ALT 16 Alkaline Phosphatase 70 Troponin I High Sens Total Protein 7.6 Albumin 4.3 05/07/23 05/07/23 11:15 14:12 MCV MCH MCHC RDW Plt Count MPV Immature Gran % (Auto) Neut % (Auto) Lymph % (Auto) [place] % (Auto) Eos % (Auto) Baso % (Auto) Lymph # (Auto) [place] # (Auto) Eos # (Auto) Baso # (Auto) Abs Immat Gran (auto) Absolute Neuts (auto) Absolute Nucleated RBC Nucleated RBC % (auto) PT INR APTT Anion Gap Estim Creat Clear Calc Estimated GFR Random Glucose Calcium Total Bilirubin AST ALT Alkaline Phosphatase Troponin I High Sens 6.2 6.9 Total Protein Albumin Imaging Radiologist's Impressions: Impressions Head CT 05/07/23 12:04 IMPRESSION: No acute intracranial pathology. Assessment and Plan (1) Essential hypertension: Status: Acute Plan this is a 52 year old female with HTN who was sent in from out patient echo with high BP accelerated HTN asymptomatic. no end organ damage unclear compliance as fill history doesn't correspond with daily medication use BP down from 244/107 to 188/109 after meds in ED, avoid further drop in BP for now resume labetalol home dose resume lisinopril 20 mg (50% reported home dose) monitor bp closely h/o headaches continue home meds dvt ppx - low risk - encourage early ambulation, mechanical devices attending - dr. zhou Time Spent With Patient Time: Total time managing care of this patient today ____ minutes. Quality Stroke Does the patient have a stroke diagnosis?: No VTE Prior VTE?: No VTE Risk Level:: Medical - moderate - high VTE Device Contraindication: N/A - Device Ordered VTE Drug Contraindication: Treatment Not Indicated
[2023-05-07] MEDS: Acetaminophen 325 MG TABLET 650 MG PO (18:39)
[2023-05-07] MEDS: Labetalol HCL 200 MG TABLET PO (20:35)
[2023-05-07] MEDS: 0.9 % Sodium Chloride Flush 3 ML SYRINGE IVFLUSH (20:35)
[2023-05-07] MEDS: Topiramate 25 MG TABLET PO (20:35)
[2023-05-07] MEDS: Aspirin Enteric Coated 81 MG TABLET.DR PO (20:35)
[2023-05-08 04:00] VITALS: BP 182/98; PULSE 70; RESP 20; TEMP 36.8; O2SAT 100
[2023-05-08] MEDS: Butalb/Acetamin/Caff 50/325/40 TABLET 1 TAB PO (04:23)
[2023-05-08 04:29] VITALS: BMI 30.3
[2023-05-08 07:24] VITALS: BP 197/93; PULSE 79; RESP 18; TEMP 36.4; O2SAT 98
--- NOTE | 2023-05-08 08:21 | MHC.CM.PN ---
CM met with Patient at bedside and addressed MCGINNIS with her, providing Patient with the original and placing a copy on the chart. Patient lives in a 2 family house, on the second floor, with her and 4 children ages 7-25 years of age and her parents live on the first floor. Home/self care is the goal and CM has initiated and will follow for dc planning. Patient is covid/Pfizer vax'd x2 and her PCP is Dr. Ray Cason.
[2023-05-08] MEDS: Topiramate 25 MG TABLET PO (09:07)
[2023-05-08] MEDS: Labetalol HCL 200 MG TABLET PO (09:07)
[2023-05-08] MEDS: lisinopriL 40 MG TABLET PO (09:07)
[2023-05-08 11:03] VITALS: BP 154/82; PULSE 65; RESP 18; TEMP 36.9; O2SAT 97
--- NOTE | 2023-05-08 11:21 | P.DS_ITS ---
DS: Providers Provider Date of Service: 05/08/23 Date of admission: 05/07/23 16:35 Primary care physician: Ray Cason MD DS: Diagnosis Discharge Diagnosis (1) Essential hypertension: Status: Acute DS: Summary Hospital Course Hospital Course: this is a 52-year-old female with past medical history of hypertension who comes into the hospital after blood pressure was noted to be elevated during an outpatient appointment. On arrival to the ED her blood pressure was noted to be 244/107. Patient has history of migraine headaches and reports that she has this headache on and off not necessarily related to her blood pressure. She denied any chest pain, no shortness of breath, denied having no change in vision, no headache, no nausea or vomiting, no diarrhea constipation. on review of her medications, he was noted that she has not had a fill of both her labetal ol and lisinopril in sometime. There is a concern for noncompliance I had a long discussion with the patient about the side effects and potential life-threatening consequences of uncontrolled hypertension specially with readings that she came on with including hemorrhagic stroke, CVA in general, CKD, and cardiac consequences patient patient understands and is agreeable to adhere to medications follow up closely with PCP. I also advised the patient to check her blood pressure twice a day at the same time, for 1 week and take the readings to her primary care doctor for possible adjustment of her medications. Will given you script for lisinopril and labetalol. Continue same dose. bp on discharge better controlled. and pt is asymptomatic Time Spent with Patient Time attestation: Total time managing care of this patient today ____ minutes. Discharge coordination time: Greater than 30 minutes Quality: Safe Use of Opioids Does Pt have an Active Cancer Diagnosis on the Problem List?: No Quality: Stroke Does the patient have a stroke diagnosis?: No Physical Exam Vital Signs: Vital Signs: Last Vital Signs Temp 98.5 F 05/08/23 11:03 Pulse 65 05/08/23 11:03 Resp 18 05/08/23 11:03 BP 154/82 H 05/08/23 11:03 Pulse Ox 97 05/08/23 11:03 O2 Del Method Room Air 05/08/23 11:03 BMI result Body Mass Index 30.3 Const: Other: Patient awake alert x3 Resp: Other: clear to auscultation bilaterally Cardio: Other: normal rate and rhythm Extrem: Other: no pedal edema DS: Data Data Completed and Pending Labs on day of discharge: Laboratory Results - last 24 hr 05/07/23 05/07/23 05/07/23 11:15 11:15 11:15 WBC 5.2 RBC 4.33 Hgb 13.8 Hct 41.4 MCV 95.6 MCH 31.9 MCHC 33.3 RDW 13.4 Plt Count 276 MPV 8.4 L Immature Gran % (Auto) 0.4 Neut % (Auto) 71.2 Lymph % (Auto) 19.4 L [place] % (Auto) 8.0 Eos % (Auto) 0.8 Baso % (Auto) 0.2 Lymph # (Auto) 1.0 L [place] # (Auto) 0.4 Eos # (Auto) 0.0 Baso # (Auto) 0.0 Abs Immat Gran (auto) 0.02 Absolute Neuts (auto) 3.7 Absolute Nucleated RBC 0.000 Nucleated RBC % (auto) 0.0 PT 10.2 INR 0.9 APTT 35.5 Sodium 140 Potassium 4.0 Chloride 108 Carbon Dioxide 26 Anion Gap 10 L BUN 15 Creatinine 0.95 Estim Creat Clear Calc 73.1 Estimated GFR > 60 Random Glucose 97 Calcium 8.8 Total Bilirubin 1.1 H AST 16 ALT 16 Alkaline Phosphatase 70 Troponin I High Sens Total Protein 7.6 Albumin 4.3 05/07/23 05/07/23 11:15 14:12 WBC RBC Hgb Hct MCV MCH MCHC RDW Plt Count MPV Immature Gran % (Auto) Neut % (Auto) Lymph % (Auto) [place] % (Auto) Eos % (Auto) Baso % (Auto) Lymph # (Auto) [place] # (Auto) Eos # (Auto) Baso # (Auto) Abs Immat Gran (auto) Absolute Neuts (auto) Absolute Nucleated RBC Nucleated RBC % (auto) PT INR APTT Sodium Potassium Chloride Carbon Dioxide Anion Gap BUN Creatinine Estim Creat Clear Calc Estimated GFR Random Glucose Calcium Total Bilirubin AST ALT Alkaline Phosphatase Troponin I High Sens 6.2 6.9 Total Protein Albumin Discharge Plan Discharge Patient Disposition: Home, Self-Care Discharge Diagnosis: hypertensive crisis Referrals: Ray Cason MD [Primary Care Provider] - 1 Week Discharge Medications: Continued tramadol 50 mg tablet 50 mg PO BID PRN (Reason: Pain) labetalol 200 mg tablet 200 mg PO BID 60 Days Qty: 120 0RF lisinopril 40 mg tablet 40 mg PO DAILY 30 Days Qty: 30 2RF [id number]-gdigrdlvombya-[id number] [Fioricet] 50-300-40 mg capsule 1 cap PO Q4H PRN (Reason: HEADACHES) aspirin [Adult Low Dose Aspirin] 81 mg tablet,delayed release (DR/EC) 81 mg PO BEDTIME lorazepam 0.5 mg tablet 0.5 mg PO BID PRN (Reason: Anxiety) topiramate 25 mg tablet 25 mg PO BID 30 Days Qty: 60 2RF Discharge Orders: Discharge Order (Routine); Ordered 05/08/23 Ordered By: Pino Horton Diet: Advance to usual diet Activity on Discharge: As tolerated Stand Alone Forms: Patient Portal Discharge page Care Plan Goals: Resume home medications for hypertension. New scripts sent directly to pharmacy Health Concerns: Uncontrolled hypertension Plan of Treatment: importance of medication compliance and complications as a result of uncontrolled hypertension discussed with patient in details. Please adhere to medical regimen and follw up with PCP. Also check BP twice /day same tiome for a wk and take your bp readings to PCP, for evluation and adjustments of your meds if necessary Assessment: see above Patient Instructions: Hypertensive Crisis (ED)
--- NOTE | 2023-05-08 11:23 | MHC.CM.PN ---
Patient has been medically cleared for dc to home today, self care.
== END 2023-05-08 14:14 | disposition home or self-care (01) ==
LOC: HO.ED 11:06 → HO.EDOVER 16:53 → HO.IMC 17:41
PROVIDERS: Physician Assistant; Admitting Provider Physician Assistant Medical; Emergency Provider Student in an Organized Health Care Education/Training Program; PCP Internal Medicine; Visit Provider Internal Medicine
DX: I16.9 Hypertensive crisis, unspecified (principal); I10 Essential (primary) hypertension; G43.809 Other migraine, not intractable, without status migrainosus; K21.9 Gastro-esophageal reflux disease without esophagitis
CPT/HCPCS: 36415; 70450; 80053; 84484; 85025; 85610; 85730; 93000; 96374; 99222; 99285

== ENCOUNTER 2023-05-27 09:45 | Outpatient (REF) | payer OTHER, SELFPAY ==
--- NOTE | ~2023-05-27 | US_ITS ---
EXAMINATION: Renal ultrasound with Doppler exam CLINICAL INFORMATION: Hypertension COMPARISON: Previous CT of the abdomen and pelvis May 2017 TECHNIQUE: Grayscale and color imaging of the kidneys. Grayscale and color Doppler imaging of the renal arteries including waveform spectral analysis FINDINGS: Right kidney is slightly smaller than the left measuring 8.1 x 4.2 x 4.7 cm. The left kidney measures 10.4 x 5.2 x 4.5 cm. There areas of right renal cortical thinning or scarring. There is mild right hydronephrosis. There is question of a small stone in the upper pole of the right kidney. The left kidney is normal appearing. Renal Doppler: Mid aortic peak systolic velocity measures 98 cm/s. Right renal artery peak systolic velocities measure 64, 179 and 1 46 cm/s proximally, in the midportion and distally. Right renal artery to aorta ratio measures 1.8. Interlobar resistive indices in the right kidney are normal measuring 0.6-0.7. Left renal artery peak systolic velocities measure 186, 228 and 92 cm/s proximally, in the midportion and distally. Left renal artery to aorta ratio measures 2.3. Interlobar resistive indices of the left kidney measures 0.6-0.7. Bilateral renal veins are patent. US/US renal doppler IMPRESSION: Right kidney is slightly smaller than the left with areas of right renal cortical thinning or scarring. Mild right hydronephrosis. Question small right upper pole stone. Morphologically normal-appearing left kidney. Upper normal peak systolic velocity in the midportion of the right renal artery measuring 179 cm/s. Slightly elevated left renal artery peak systolic velocity measuring maximum 228 cm/s. Upper normal peak systolic velocity is 180 cm/s. Findings are questionable for bilateral less than 60% renal artery stenosis. Follow-up CTA or MRA should be considered.
--- NOTE | ~2023-05-27 | US_ITS ---
EXAMINATION: ULTRASOUND RENAL WITH DOPPLER CLINICAL INFORMATION: Malignant hypertension. COMPARISON: CT abdomen and pelvis dated 06/04/2017. TECHNIQUE: Real-time grayscale, color Doppler, and duplex Doppler evaluation of the kidneys and renal vasculature was performed. FINDINGS: RENAL MEASUREMENTS: Right: 8.1 x 4.2 x 4.7 cm (Sag x AP x TV) Left: 10.4 x 5.2 x 4.5 cm (Sag x AP x TV) The renal parenchyma appears normal. There is mild right hydronephrosis. A 3 mm nonobstructing right renal upper pole calculus is seen, with twinkle artifact. No left hydronephrosis or calculus. DOPPLER INTERROGATION: Aorta: 98 cm/sec Right Main Renal Artery: Proximal: 64 cm/sec Mid: 179 cm/sec Distal: 146 cm/sec Left Main Renal Artery: Proximal: 186 cm/sec Mid: 228 cm/sec Distal: 92 cm/sec Renal-Aortic Ratio (RAR): Right: 1.8 Left: 2.3 Bilateral upper pole, interpolar and lower pole [segmental] arteriolar resistive indices are within normal limits. Bilateral upper pole, interpolar and lower pole [segmental] arteriolar pulse doppler waveforms are unremarkable, with uniformly rapid upstrokes and no parvus et tardus configuration. US/US renal BI IMPRESSION: 1. Findings are consistent with greater than 60%, hemodynamically significant mid left renal artery stenosis. 2. There is mild right hydronephrosis. 3. A 3 mm nonobstructing right renal upper pole calculus is seen.
== END 2023-05-27 09:46 | disposition home or self-care (01) ==
LOC: HO.US 09:45
PROVIDERS: Visit Provider Physician Assistant
DX: I10 Essential (primary) hypertension (principal)
CPT/HCPCS: 76775; 93975

== ENCOUNTER 2023-06-11 11:58 | Emergency (ER) | payer OTHER, SELFPAY ==
[2023-06-11] VITALS (7 sets, daily range): BP systolic 213–248; BP diastolic 101–137; PULSE 75–97; RESP 16–18; TEMP 36.8–37.3; O2SAT 95–100; BMI 27.5
--- NOTE | ~2023-06-11 | XR_ITS ---
EXAMINATION: XR WRIST, LEFT CLINICAL INFORMATION: Left wrist pain status post fall. COMPARISON: None available. TECHNIQUE: PA, lateral, scaphoid and oblique views of the left wrist. An indicator arrow points to the dorsum of the left wrist. FINDINGS: The bones and soft tissues are normal. No fracture. Alignment is anatomic with normal joint spaces. No erosions or abnormal soft tissue calcifications. XR/XR wrist LT min 3V IMPRESSION: Unremarkable left wrist.
--- NOTE | ~2023-06-11 | XR_ITS ---
EXAMINATION: XR ANKLE, RIGHT CLINICAL INFORMATION: Right ankle pain status post fall. COMPARISON: None available. TECHNIQUE: AP, lateral, and mortise views of the right ankle. An indicator arrow points to the lateral aspect of the right ankle. FINDINGS: The ankle joint and mortise appear intact. There is no acute fracture. Mild degenerative malleoli spurring is seen medially and laterally. The tarsal bones are normally aligned. Moderate plantar and very small retrocalcaneal spurs. Mild soft tissue swelling. XR/XR ankle RT min 3V IMPRESSION: 1. Mild soft tissue swelling without acute underlying osseous abnormality. 2. Mild degenerative spurring. 3. Moderate plantar and very small retrocalcaneal spurs.
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
--- NOTE | 2023-06-11 13:10 | PC.NURSE ---
pt htn on automatic b/p, pt denies any chest pain, blurry vision, h/a, lightheadedness, dizziness. mlp (brissa) aware.
[2023-06-11] MEDS: lisinopriL 40 MG TABLET PO (13:16)
[2023-06-11] MEDS: Labetalol HCL 200 MG TABLET PO (15:22)
== END 2023-06-11 16:34 | disposition home or self-care (01) ==
PROVIDERS: Emergency Provider Emergency Medicine Emergency Medical Services; PCP Internal Medicine
DX: S93.401A Sprain of unspecified ligament of right ankle, initial encounter (principal); S63.502A Unspecified sprain of left wrist, initial encounter; I10 Essential (primary) hypertension; X50.1XXA Overexertion from prolonged static or awkward postures, initial encounter; Y93.9 Activity, unspecified; Y92.9 Unspecified place or not applicable; Y99.9 Unspecified external cause status; Z79.899 Other long term (current) drug therapy
CPT/HCPCS: 73110; 73610; 99283; 99284

== ENCOUNTER 2024-03-22 09:00 | Outpatient (REF) | payer OTHER, SELFPAY ==
[2024-03-22 09:23] LABS: MANUAL DIFF FLAG NO
[2024-03-22 09:43] LABS: Basophils Percent Auto 0.7 % (0-2); Eosinophils Absolute Auto 0.1 X10*3/uL (0.0-0.4); Hematocrit 37.4 % (37.0-47.0); Hemoglobin 12.8 g/dl (12.0-16.0); Imm Gran Abs Auto 0.01 X10*3/uL (0.00-0.03); Imm Gran Pct Auto 0.2 % (0.0-0.4); Lymphocytes Absolute Auto 0.9 X10*3/uL (1.2-4.9); Mean Corpuscular HGB Conc 34.2 g/dl (31.0-35.0); Mean Corpuscular Hemoglobin 31.8 pg (27.0-33.0); Mean Platelet Volume 8.6 fL (9.4-12.3); Monocytes Absolute Auto 0.3 X10*3/uL (0.1-1.2); Monocytes Percent Auto 7.7 % (2-11); Neutrophils Absolute Auto 2.8 x10*3/uL (2.0-8.3); Neutrophils Percent Auto 68.4 % (45-73); Platelet Count 278 X10*3/uL (160-400); Red Blood Count 4.02 X10*6/uL (4.20-5.50); Red Cell Distribution Width 13.4 % (11.0-16.0); White Blood Count 4.1 X10*3/uL (4.8-10.8)
[2024-03-22 10:07] LABS: Estimated Average Glucose 100 mg/dL; Hemoglobin A1c % 5.1 % (<6.0)
[2024-03-22 10:20] LABS: Parathyroid Hormone Intact 70.7 pg/mL (8.7-77.1)
[2024-03-22 10:27] LABS: Alanine Aminotransferase 17 U/L (0-31); Albumin Level 4.1 g/dL (3.5-5.0); Alkaline Phosphatase 72 U/L (39-117); Anion Gap 14 (12-20); Aspartate Amino Transferase 17 U/L (5-31); Bilirubin Total 0.6 mg/dL (0.0-1.0); Blood Urea Nitrogen 18 mg/dL (9-16); Calcium 9.6 mg/dL (8.4-10.2); Carbon Dioxide 23 mmol/L (22-29); Chloride 108 mmol/L (96-108); Cholesterol 209 mg/dL (<200); Estimated Glomerular Filt Rate 59; Glucose Random 88 mg/dL (60-115); HDL Cholesterol 83 mg/dL (>40); LDL Cholesterol Calculated 109 mg/dL (<100); Magnesium 2.2 mg/dL (1.6-2.6); Phosphorus 3.1 mg/dL (2.7-4.5); Potassium 4.1 mmol/L (3.3-5.1); Sodium 141 mmol/L (135-145); Total Protein 7.1 g/dL (6.5-8.0); Triglycerides 89 mg/dL (<150)
[2024-03-22 10:33] LABS: Erythrocyte Sedimentation Rate 5 MM/HR (0-20)
[2024-03-22 10:41] LABS: Free T4 (Free Thyroxine) 0.85 ng/dL (0.71-1.85); Thyroid Stimulating Hormone 0.57 uIU/mL (0.32-4.0); Vitamin D 25-OH Total 42.1 ng/mL (>30)
[2024-03-22 10:54] LABS: Folate 11.2 ng/mL (> or = 4.0); Vitamin B12 391 pg/mL (200-900)
== END 2024-03-22 09:01 | disposition home or self-care (01) ==
LOC: HO.LAB 09:00
PROVIDERS: PCP Internal Medicine; Visit Provider Physician Assistant
DX: M79.18 Myalgia, other site (principal); I10 Essential (primary) hypertension
CPT/HCPCS: 36415; 80053; 80061; 82306; 82550; 82607; 82746; 83036; 83735; 83970; 84100; 84439; 84443; 85025; 85652; 86140

== ENCOUNTER 2024-05-05 08:53 | Outpatient (REF) | payer OTHER, SELFPAY ==
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
== END 2024-05-05 08:54 | disposition home or self-care (01) ==
LOC: HO.US 08:53
PROVIDERS: PCP Internal Medicine; Visit Provider Physician Assistant
DX: S36.3 Injury of stomach (principal); V89.2XXD Person injured in unspecified motor-vehicle accident, traffic, subsequent encounter
CPT/HCPCS: 76857

== ENCOUNTER 2024-08-03 16:14 | Outpatient (REF) | payer OTHER, SELFPAY ==
--- NOTE | ~2024-08-03 | XR_ITS ---
EXAMINATION: XR WRIST, LEFT CLINICAL INFORMATION: Fall COMPARISON: Left wrist x-ray on 06/11/2023 TECHNIQUE: Four views of the left wrist. FINDINGS: The bones and soft tissues are normal. No fracture. Alignment is anatomic with normal joint spaces. No erosions or abnormal soft tissue calcifications. XR/XR wrist LT min 3V IMPRESSION: Normal left wrist. Electronically signed by: Carla Jama MD 08/23/2024 03:11 PM EDT
--- NOTE | ~2024-08-03 | XR_ITS ---
EXAMINATION: XR ANKLE, RIGHT CLINICAL INFORMATION: Ankle pain COMPARISON: None available. TECHNIQUE: AP, lateral, and mortise views of the right ankle. FINDINGS: No fracture. Alignment is anatomic. No erosions. Joint spaces are maintained. Soft tissue swelling overlying the lateral malleolus. XR/XR ankle RT min 3V IMPRESSION: Soft tissue swelling overlying the lateral malleolus. Electronically signed by: Carla Jama MD 08/23/2024 03:10 PM EDT
== END 2024-08-03 16:15 | disposition home or self-care (01) ==
LOC: HO.XRAY 16:14
PROVIDERS: PCP Internal Medicine; Visit Provider Internal Medicine
DX: M25.532 Pain in left wrist (principal); M25.571 Pain in right ankle and joints of right foot
CPT/HCPCS: 73110; 73610

== ENCOUNTER 2024-10-11 10:28 | Outpatient (REF) | payer OTHER, SELFPAY ==
[2024-10-11] MEDS: gadobutroL 7.5 ML VIAL IVPUSH (11:26)
== END 2024-10-11 10:29 | disposition home or self-care (01) ==
LOC: HO.MRI 10:28
PROVIDERS: PCP Internal Medicine; Visit Provider Physician Assistant
DX: Q82.2 Congenital cutaneous mastocytosis (principal)
CPT/HCPCS: 70553; A9585